=== PATIENT | male | born 1955 | race Caucasian/White ===

== ENCOUNTER → 2017-03-20 | Outpatient (CLI) | payer BC ==
--- NOTE | 2017-03-20 21:21 | DI ---
CT SCAN OF THE RIGHT KNEE, 03/20/2017 9:03 AM : Clinical History: Right knee pain. The patient is status post total right knee replacement. Metal artifact reduction scans are obtained from the distal femur above the femoral condyles to the p roximal tibia and fibula inferior to the tibial prosthesis without IV contrast. Sagittal and coronal reformatted images are also generated with bone enhancement and soft tissue algorithms. The patient is status post total right knee replacement. The prosthetic device articulates normally. There is no evidence of loosening of the prosthetic device. A large joint effusion is present and the re is a large cystic lesion in the popliteal fossa on the medial aspect. This cystic lesion has a "th ick" capsule. The cystic lesion probably is a popliteal cyst and measures approximately 45 x 50 x 80 mm in AP, transverse, and longitudinal dimensions. On the axial scans, there is an estimated 3-4 degr ees of external rotation of the femoral prosthesis relative to the [place] femoral condyles. The grossman la on the axial scans articulates asymmetrically relative to the medial and lateral aspects. The dist ance between the [place] patella and the femoral prosthetic component is greater on the medial aspect than the lateral aspect. READIN. Status post total right knee replacement. The prosthetic device articulates normally and there is no evidence of loosening of the prosthesis. 2. There is apparent external rotation of the femoral component of the prosthesis relative to the fe moral condyles by about 3-4 degrees. The [place] patella is positioned on the femoral prosthesis so th at the distance laterally between the patella and femoral prosthesis is smaller than on the medial si de. 3. Large joint effusion. There is a large cystic structure in the popliteal fossa on the medial aspe ct measuring 45 x 50 x 80 mm with a thick "rind". This probably is a large medial popliteal cyst.
== END ==
LOC: CT 08:52
PROVIDERS: ATTEND Orthopaedic Surgery
DX: M25.561 Pain in right knee (principal); M25.461 Effusion, right knee; Z96.651 Presence of right artificial knee joint
CPT/HCPCS: 73700